=== PATIENT | male | born 1990 | race Caucasian/White ===

== ENCOUNTER 2019-01-14 17:22 | Emergency (ER) | payer OTHER ==
[~2019-01-14] VITALS: Ht 175.3 cm; Wt 65.3 kg
[2019-01-14 17:27] VITALS: Ht 175.3 cm; Wt 65.3 kg
[2019-01-14 18:08] LABS: CALCIUM 9.4 mg/dL (8.5-10.1); CARBON DIOXIDE 30.7 mmol/L (21-32); CHLORIDE SERUM 103 mmol/L (98-107); CREATININE SERUM 1.2 mg/dL (0.7-1.3); GFR1 > 60 mL/min; GLUCOSE SERUM 110 mg/dL (74-106); POTASSIUM SERUM 3.5 mmol/L (3.5-5.1); SODIUM SERUM 141 mmol/L (136-145)
[2019-01-14 18:13] LABS: ALBUMIN 4.6 g/dL (3.4-5.0); ALKALINE PHOSPHATASE 66 U/L (46-116); ALT/SGPT 56 U/L (16-63); AST/SGOT 37 U/L (15-37); BILIRUBIN TOTAL 1.2 mg/dL (0.20-1.00); LIPASE 104 IU/L (73-393); TOTAL PROTEIN, SERUM 7.9 g/dL (6.4-8.2)
[2019-01-14 18:18] LABS: BASOPHIL % 0.3 % (0-2); PLATELET COUNT 216 x10^3mcL (130-400); RED CELL DISTRIBUTION WIDTH 14.1 % (11.5-14.5)
[2019-01-14 19:35] VITALS: BP 128/82
== END 2019-01-14 19:35 | disposition home or self-care (01) ==
LOC: ED 17:22
PROVIDERS: Emergency Medicine
DX: K21.9 Gastro-esophageal reflux disease without esophagitis (principal); F41.9 Anxiety disorder, unspecified
CPT/HCPCS: 36415; Q0092

== ENCOUNTER 2019-01-14 20:02 | Emergency (ER) | payer OTHER ==
[~2019-01-14] VITALS: Ht 175.3 cm; Wt 65.3 kg
[2019-01-14 20:05] VITALS: Ht 175.3 cm; Wt 65.3 kg
[2019-01-14 21:39] VITALS: BP 132/76
== END 2019-01-14 21:39 | disposition home or self-care (01) ==
LOC: ED 20:02
DX: K21.9 Gastro-esophageal reflux disease without esophagitis (principal); F41.9 Anxiety disorder, unspecified
CPT/HCPCS: J1885